=== PATIENT | male | born 1935 | race Caucasian/White ===

== ENCOUNTER 2022-09-29 17:04 | Outpatient (CLI) | payer MEDICARE, BC, SELFPAY | END 2022-09-29 17:05 | disposition home or self-care (01) | LOC: ANHLAB 17:05 | PROVIDERS: Visit Provider Neurological Surgery | DX: M47.812 Spondylosis without myelopathy or radiculopathy, cervical region (principal); Z01.818 Encounter for other preprocedural examination | CPT/HCPCS: 36415; 86850; 86900; 86901 ==

== ENCOUNTER 2022-11-14 01:39 | Day surgery (SDC) | payer MEDICARE, BC, SELFPAY ==
[2022-09-29 14:45] VITALS: BMI 30.7
--- NOTE | 2022-09-29 15:02 | PC.NURSE ---
Addendum entered by Karina Viveros RN 11/08/22 12:08: PT TO ARRIVE AT 0600 ON 11/14/22 FOR SURGERY AT 0800. HAS ALREADY STOPPED ASPIRIN, PLAVIX, AND VITAMINS. Original Note: PRE-OP INSTRUCTIONS, PLEASE READ CAREFULLY Report to the Outpatient Waiting Room, entrance under the green pavilion located off [facility], at time _0730_ on date _10/04/22_. Planned Procedure Time: _0930_. Time changes happen often and if your time is changed the preop area will call you the afternoon before. - You and your visitor will be asked to self-screen and do not enter if you have any COVID symptoms. - Only one visitor is requested with a max of two and NO children visitors are allowed at this time. - The patient visitor may be requested to leave or wait in car when not with patient due to distancing restrictions. - A mask is REQUIRED within the hospital. Patients may have clear liquids (water, carbonated beverages, clear teas, apple juice) until 3 hours prior to surgery (0630 AM) with a maximum of 20 ounces. - No food from midnight until time of surgery Take the following medications with a SIP of water the morning of surgery: __ISOSORBIDE, METOPROLOL__ Medications to discontinue per physician ___PT STATES ALREADY STOPPING ASPIRIN, PLAVIX, VITAMIN D3, EYE VITAMINS 09/26/22_ Please no make-up, nail danish, hairspray, perfume, deodorant, or body powder the day of surgery. No jewelry (including any body piercings) or valuables the day of surgery, leave them at home. Please take a shower or bath the night before, or the morning of, surgery with an antibacterial soap. Wear comfortable, loose fitting clothing. - Jewelry must be removed prior to entering the operating room. Rings and piercings that are not removed may be cut off. - The hospital will not accept responsibility for valuables. - Please leave all valuables, including medications, at home the day of surgery. If you are going home after surgery, a licensed reefer truck driver must drive you home. - NO public transportation without another adult if you receive anesthesia. - We recommend that an adult stay with you for 24 hours following discharge. - We also recommend that you do not drive, make important decision, drink alcoholic beverages, or take any drugs that were not prescribed by your health care provider for at least 24 hours after your discharge time. Follow any additional instructions given to you from your surgeon. If you or anyone in your household have experienced Covid symptoms in the past week, please notify your surgeon or the nurse liaison at the phone number below for possible testing. Telephone instructions given to PATIENT and asked if any additional questions and then verbalized understanding. Patient advised to call surgeon office or pre surgery nurse liaison [phone] if any additional questions.
--- NOTE | 2022-11-08 12:07 | PC.NURSE ---
Pt states no changes in medications or health history since initial interview. Pre-op instructions reviewed with pt. Pt denies further questions at this time.
[2022-11-14] VITALS (9 sets, daily range): BP systolic 128–178; BP diastolic 57–93; PULSE 59–76; RESP 11–16; TEMP 36.2–36.7; O2SAT 94–100
--- NOTE | ~2022-11-14 | XR_ITS ---
EXAMINATION: XR fluoroscopy no charge DATE: 11/14/2022 09:45 INDICATION: C3-C4 bilateral foraminal stenosis. TECHNIQUE: A single intraoperative lateral view of the cervical spine was obtained. I was not present . Fluoroscopy exposure time was 5 seconds. COMPARISON: None. FINDINGS: There are changes of anterior fusion procedure at C3-C4 with interbody device and anterior plate and screws. IMPRESSION: 1. Anterior fusion procedure at C3-C4. Reviewed, dictated and finalized at location A. 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
[2022-11-14] MEDS: LACTATED RINGERS 1,000 ML 30 ML IV CONT (07:11)
--- NOTE | 2022-11-14 07:45 | WPDANESEPPF ---
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 Patient Data Age: 87 Gender: M Height: 1.8 m Weight: 102.4 kg Last Vital Signs Temp 97.2 F L 11/14/22 07:06 Pulse 68 11/14/22 07:06 Resp 16 11/14/22 07:06 BP 128/57 L 11/14/22 07:06 Pulse Ox 96 11/14/22 07:06 O2 Del Method Room Air 11/14/22 07:06 Allergies Allergy/AdvReac Type Severity Reaction Status Date / Time No Known Allergies Allergy Verified 11/08/22 12:06 Home Medications Medication Instructions Recorded Confirmed Type aspirin 81 mg tablet,delayed 81 mg QAM 09/29/22 11/14/22 History release atorvastatin 20 mg tablet 20 mg PO QAM 09/29/22 11/14/22 History cholecalciferol (vitamin D3) 50 50 mcg PO QAM 09/29/22 11/14/22 History mcg (2,000 unit) capsule clopidogrel 75 mg tablet (Plavix) 75 mg PO QAM 09/29/22 11/14/22 History isosorbide mononitrate 30 mg 30 mg PO QAM 09/29/22 11/14/22 History tablet,extended release 24 hr lansoprazole 30 mg capsule,delayed 30 mg PO QAM 09/29/22 11/14/22 History release metoprolol succinate 25 mg capsule 25 mg PO QAM 09/29/22 11/14/22 History sprinkle, ext. release 24 hr tamsulosin 0.4 mg capsule (Flomax) 0.4 mg PO QAM 09/29/22 11/14/22 History vit A 7,160 unit-vit C 113 mg-vit 1 tablet QAM 09/29/22 11/14/22 History E 100 [id number] tablet Laboratory Tests 11/14/22 06:31 Blood Type O Negative Antibody Screen Pending Patient hx anesthesia problems: none Family hx anesthesia problems: none Results Review: All pre-operative results and documents have been reviewed as part of the pre-operative evaluation. [facility] Past Medical History Medical History (Updated 10/04/22 @ 07:35 by Edison Zheng) Acid reflux High cholesterol Hypertension Pain in right hip Spondylosis without myelopathy or radiculopathy, cervical region Surgical History Surgical History (Updated 10/04/22 @ 07:35 by Edison Zheng) H/O cervical spine surgery Family History Family History (System 10/04/22 @ 07:35 by Edison Zheng) Other Diabetes mellitus Heart disease Social History Social History (System 10/04/22 @ 07:35 by Edison Zheng) Smoking packs per day: 1 Smoking cigarettes per day: 20.0 Years smoked: 39 Smoking pack-years: 39.00 Smoking status: Former smoker Tobacco type: cigarettes Second hand tobacco smoke exposure: No Smoking end date: 09/18/93 Alcohol intake: current Alcohol use details: 3-4 BEERS/6 MONTHS Substance use: never Substance use type: does not use Lack of Transportation: No Lack of Food: Never True Current Housing: I Have Housing Concerned About Future Housing: No Difficulty Paying Gas/Electric Bills: No Difficulty Paying for Meds: No Currently Unemployed: No Education: Decline to Answer Difficulty w/ Childcare or Family Care: Decline to Answer Living arrangements: with family Spiritual care concerns: No Anes - Eval Final PreProcedure Day of Procedure 11/14/22 07:45 Patient weight: normal Heart: regular rate and rhythm Lungs: clear to auscultation Airway: Mallampati scale class III (full upper caps on teeth) Neurological: alert and oriented Last oral intake: >/= 8 hours ASA classification: III Emergent: no Anesthetic plan: proceed Anesthesia type and monitoring: general ETT (have glidescope available) and standard monitoring Results Review: All pre-operative results and documents have been reviewed as part of the pre-operative evaluation. Informed Consent: The patient's anesthetic plan and its attendant risks and benefits were discussed with the patient/family/POA. Questions were solicited and answers provided to the satisfaction of the patient/family/POA.
--- NOTE | 2022-11-14 08:15 | PM.IMHP ---
H&P: HPI History of Present Illness Date/Time: 11/14/22 08:15 Chief Complaint: Guru is an 87-year-old gentleman with neck and arm pain related to disc osteophyte complex and spondylosis at the C3-4 who presents for anterior cervical diskectomy and fusion at that level. He has not changed appreciably since we last saw him. He occasionally has dermatomal numbness especially in the left upper extremity but pain in both upper extremities. He is not having any bowel or bladder difficulty. He does not have specific muscle group weakness of either upper extremity. Review of Systems Review of Systems: Patient denies shortness of breath, cough, fever, chills, nausea, vomiting, weight loss, weight gain, chest pain, dysuria. He has neck and arm pain as above and neck stiffness. [facility] Past Medical History Medical History (Updated 10/04/22 @ 07:35 by Edison Zheng) Acid reflux High cholesterol Hypertension Pain in right hip Spondylosis without myelopathy or radiculopathy, cervical region Surgical History Surgical History (Updated 10/04/22 @ 07:35 by Edison Zheng) H/O cervical spine surgery Family History Family History (System 10/04/22 @ 07:35 by Edison Zheng) Other Diabetes mellitus Heart disease Social History Social History (System 10/04/22 @ 07:35 by Edison Zheng) Smoking packs per day: 1 Smoking cigarettes per day: 20.0 Years smoked: 39 Smoking pack-years: 39.00 Smoking status: Former smoker Tobacco type: cigarettes Second hand tobacco smoke exposure: No Smoking end date: 09/18/93 Alcohol intake: current Alcohol use details: 3-4 BEERS/6 MONTHS Substance use: never Substance use type: does not use Lack of Transportation: No Lack of Food: Never True Current Housing: I Have Housing Concerned About Future Housing: No Difficulty Paying Gas/Electric Bills: No Difficulty Paying for Meds: No Currently Unemployed: No Education: Decline to Answer Difficulty w/ Childcare or Family Care: Decline to Answer Living arrangements: with family Spiritual care concerns: No Meds Home Medications and Allergies Home Medications Medication Instructions Recorded Confirmed Type aspirin 81 mg tablet,delayed 81 mg QAM 09/29/22 11/14/22 History release atorvastatin 20 mg tablet 20 mg PO QAM 09/29/22 11/14/22 History cholecalciferol (vitamin D3) 50 50 mcg PO QAM 09/29/22 11/14/22 History mcg (2,000 unit) capsule clopidogrel 75 mg tablet (Plavix) 75 mg PO QAM 09/29/22 11/14/22 History isosorbide mononitrate 30 mg 30 mg PO QAM 09/29/22 11/14/22 History tablet,extended release 24 hr lansoprazole 30 mg capsule,delayed 30 mg PO QAM 09/29/22 11/14/22 History release metoprolol succinate 25 mg capsule 25 mg PO QAM 09/29/22 11/14/22 History sprinkle, ext. release 24 hr tamsulosin 0.4 mg capsule (Flomax) 0.4 mg PO QAM 09/29/22 11/14/22 History vit A 7,160 unit-vit C 113 mg-vit 1 tablet QA 09/29/22 11/14/22 History E 100 [id number]-qmqocd tablet Allergies Allergy/AdvReac Type Severity Reaction Status Date / Time No Known Allergies Allergy Verified 11/08/22 12:06 Vital Signs Vital Signs - 24 hr 11/14/22 07:06 Temperature 97.2 F L Pulse Rate 68 Respiratory Rate 16 Blood Pressure 128/57 L Pulse Oximetry 96 Oxygen Delivery Room Air Exam Narrative: Strength is 5/5 in all muscle groups of the bilateral upper extremities. Sensation is intact to light touch in the upper extremities in the sitting position in the bed. Breathing is unlabored, cecum speaks in complete sentences without difficulty. Regular rate and rhythm Assessment and Plan Assessment and plan (1) Cervical spondylosis: Code(s): M47.812 - Spondylosis without myelopathy or radiculopathy, cervical region Status: Acute (2) Foraminal stenosis of cervical region: Code(s): M48.02 - Spinal stenosis, cervical region Status: Acute Plan Guru
--- NOTE | 2022-11-14 08:18 | WPDHPUPDATE1 ---
History and Physical Update Update Date/Time: 11/14/22 08:18 History and Physical has been reviewed, including an updated exam of the patient. There are NO changes in the patient's condition. Risks, benefits, and alternatives have been discussed and questions answered. Patient agrees to proceed with procedure.
[2022-11-14] MEDS: ceFAZolin 2 GM/D5W 50 ML 2 GM/50 ML BAG IVPB (08:22)
[2022-11-14] MEDS: LIDO 1%/EPINEPHRINE 1:100,000 20 ML VIAL 10 ML INFILTRATE (09:13)
--- NOTE | 2022-11-14 09:48 | W.PM.PROC2 ---
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 The area of operation on the right side of the neck was examined, marked for incision, prepped and draped in routine sterile fashion. Incision was marked from the midline over the medial aspect of the sternocleidomastoid muscle and curvilinear transverse fashion just below the neck line. This area was injected with 0.5% lidocaine with [id number] epinephrine. Intravenous antibiotics given prior to incision. Incision was made with a 10 blade scalpel down to the platysma muscle. The skin was undermined and the platysma muscle was divided longitudinally with its fibers using Metzenbaum scissors. Plane was then dissected medial to the sternocleidomastoid muscle down to the anterior aspect of the spine using the finger and Metzenbaum scissors. A verifying x-rays obtained to verify the level of operation. The longus colli muscle was dissected free of the anterior aspect of the spine in a subperiosteal plane using Bovie cautery. A Shadow Line retractor system was placed. Cortes pins were placed in the C3 and C4 distraction placed over the disc space. The disc space was entered using a 15 blade scalpel cutting along the margin of the bone above and below. Curved curette and pituitary rongeur were used to remove as much cartilaginous endplate disc material as possible down to the annulus and ligament posteriorly. Midas Ángel drill was used to bur down the endplates to bleeding cortical flat surfaces as well as to begin a bony foraminotomy bilaterally. Under microscopy the annulus and ligament were interrupted using a 4-0 curved curette. A 2. Kerrison punch was used to remove annulus, ligament and posterior osteophytes and to complete a bony foraminotomy bilaterally. The disc space was incised and an 8 mm interbody device was chosen and filled with a mixture of local autograft bone and I factor. This was then tamped into the interspace to a 1-2 mm countersink. The Cortes pins and distraction were removed and the holes plugged with bone wax. An anterior cervical plate was chosen placed in position and secured using 414 x 4 mm anterior screws advance into the locking mechanism of the plate to hand tightness. The locking mechanism was engaged using the small screwdriver for that purpose. A verifying x-rays obtained to verify good position of the instrumentation which was confirmed. The wound was then copiously irrigated with bacitracin irrigation all bleeding stopped with bipolar and Bovie cautery and Gelfoam thrombin powder. The wound was then closed in layered fashion with 3-0 Vicryl interrupted sutures in the lumbodorsal fascia and Delicia's layer. 3-0 Vicryl buried interrupted sutures were placed in the dermis and the skin was closed with a running 4-0 Monocryl subcuticular stitch and dressed with Dermabond. The patient was allowed to wake up in the operating room and was taken to the recovery room in stable condition. There were no immediate complications of this operation. All counts were reported correct the end of case. Blood loss was 25 cc. The patient was neurologically at his baseline postoperatively. Implants Titanium anterior locking plate and screws, peek interbody device Estimated Blood Loss 25 IV Fluids 1,000 Complications None Condition Stable Disposition PACU [facility] Billing Surgery - Charge Forward: Surgery Billing
[2022-11-14] MEDS: fentaNYL CITRATE INJ (*CRX) 100 MCG/2 ML VIAL 25 MCG IV PUSH (11:00)
== END 2022-11-14 12:19 | disposition home or self-care (01) ==
PROVIDERS: PCP Internal Medicine Infectious Disease; Visit Provider Neurological Surgery
PROC: (CPT 63030; principal; 2022-11-14 08:00)
DX: M48.02 Spinal stenosis, cervical region (principal); M47.812 Spondylosis without myelopathy or radiculopathy, cervical region; I10 Essential (primary) hypertension; E78.00 Pure hypercholesterolemia, unspecified; K21.9 Gastro-esophageal reflux disease without esophagitis; Z87.891 Personal history of nicotine dependence; Z79.82 Long term (current) use of aspirin; Z79.02 Long term (current) use of antithrombotics/antiplatelets
CPT/HCPCS: 22551; 22853; 20936; 36415; 86850; 86900; 86901; 99199; C1713; J0690; J1100; J2370; J2405; J2704; J3010; J7120

== ENCOUNTER 2022-12-26 12:50 | Outpatient (CLI) | payer MEDICARE, BC, SELFPAY ==
--- NOTE | ~2022-12-26 | XR_ITS ---
EXAM: XR cervical spine 4-5V DATE: 12/26/2022 13:40 HISTORY: 6 WEEK POST OP . COMPARISON: None available. FINDINGS: ACDF at C3-4 and C5-6. No hardware fracture or perihardware lucency. Interbody devices in g ood position. Craniocervical association and atlantoaxial joint are aligned, and demonstrate mild-mod erate degenerative change. No prevertebral soft tissue swelling. Likely chronic grade 1 anterolisthes is at C3-4. Vertebral body heights are maintained. Multilevel vertebral body fusions from C3 to C6. R eversed cervical lordosis. Multilevel facet arthropathy most severe in the upper cervical spine. IMPRESSION: Uncomplicated appearing ACDF at C3-4 and C5-6. Reviewed, dictated and finalized at location K.
== END 2022-12-26 12:51 | disposition home or self-care (01) ==
PROVIDERS: PCP Internal Medicine Infectious Disease; Visit Provider Neurological Surgery
DX: Z98.1 Arthrodesis status (principal)
CPT/HCPCS: 72050

== ENCOUNTER 2023-03-31 10:22 | Outpatient (CLI) | payer MEDICARE, BC, SELFPAY ==
--- NOTE | ~2023-03-31 | XR_ITS ---
EXAMINATION:XR_CERV2-3V_CR DATE: 03/31/2023 10:39 INDICATION: Arthrodesis status TECHNIQUE: AP, lateral, lateral swimmers and odontoid views of the cervical spine are provided. COMPARISON: 12/26/2022 FINDINGS: Alignment is normal. There are changes of intramedullary anterior fusion at C3-4 and C7-T1. The C5 and C6 vertebral bodies are fused. The vertebral body heights are maintained. There is no fra cture. Prevertebral soft tissues are normal. The odontoid process is intact. IMPRESSION: 1. Stable postsurgical changes without acute abnormality. Reviewed, dictated and finalized at location B.
== END 2023-03-31 10:23 | disposition home or self-care (01) ==
PROVIDERS: PCP Internal Medicine Infectious Disease; Visit Provider Neurological Surgery
DX: Z98.1 Arthrodesis status (principal)
CPT/HCPCS: 72040